=== PATIENT | male | born 1955 | race Caucasian/White ===

== ENCOUNTER 2021-12-14 01:11 | Emergency (ER) | payer MEDICARE ==
[~2021-12-14] VITALS: Ht 190.5 cm; Wt 101.0 kg
[~2021-12-14 01:11] MED LIST: NO HOME MEDS
[2021-12-14 01:23] VITALS: BP 143/80
[2021-12-14 01:30] VITALS: BP 137/67
[2021-12-14 02:06] LABS: HEMATOCRIT 42.6 % (39.0-50.0); IMMATURE GRANULOCYTES 1.2 % (0.0-5.0); MEAN CELL VOLUME 93.8 fL CALC (80.0-100.0); MEAN CORPUSCULAR HGB 30.8 pG CALC (26.0-32.0); MEAN CORPUSCULAR HGB CONC 32.9 g/dL CAL (32.0-36.0); NEUT# 4.38 thou/uL (1.82-7.42); RED BLOOD COUNT 4.54 mill/uL (4.70-6.10); RED CELL DISTRI WIDTH 13.5 % (11.5-15.5)
[2021-12-14 02:10] LABS: ALBUMIN 3.9 g/dL (3.2-5.0); BUN 20 mg/dL (8-23); BUN/CREATININE RATIO 24 (12-20 (CALC)); CHLORIDE 104 mmol/l (95-108); CREATININE 0.8 mg/dL (0.7-1.3); GFR FOR AFR.AMER. > 60 ML/MIN (>=60 (CALC)); GFR OTHER RACES > 60 ML/MIN (>=60 (CALC)); POTASSIUM 4.4 mmol/l (3.5-5.1); SGOT/AST 19 u/l (19-48); TOTAL PROTEIN 6.8 g/dL (6.3-8.2)
[2021-12-14 02:12] LABS: ALKALINE PHOSPHATASE 157 u/l (38-126); ANION GAP 15 (6-22 (CALC)); BILIRUBIN, TOTAL 0.6 mg/dL (0.0-1.4); CARBON DIOXIDE 19 mmol/l (22-30); SODIUM 134 mmol/l (137-146)
[2021-12-14 02:15] VITALS: BP 141/76
[2021-12-14 02:30] VITALS: BP 130/68
[2021-12-14 02:45] VITALS: BP 124/66
[2021-12-14] MEDS ORDERED: ULTRAM50 M1 PO (02:55)
[2021-12-14] MEDS ORDERED: CYCLOBENZAPRINE10 MG PO ×2 (02:55→10:20)
[2021-12-14 03:00] VITALS: BP 139/68
[2021-12-14] MEDS ORDERED: MEDDOSEPAK PO ×2 (03:40→10:20)
== END 2021-12-14 03:10 | disposition home or self-care (01) ==
LOC: ED 01:11
PROVIDERS: Emergency Medicine
DX: M47.26 Other spondylosis with radiculopathy, lumbar region (principal); F17.200 Nicotine dependence, unspecified, uncomplicated; Z86.16 Personal history of COVID-19

== ENCOUNTER 2024-06-15 04:29 | Emergency (ER) | payer MEDICARE ==
[~2024-06-15] VITALS: Ht 190.5 cm; Wt 104.0 kg
[2024-06-15] VITALS (12 sets, daily range): BP systolic 128–170; BP diastolic 59–89
[~2024-06-15 04:29] MED LIST changes: +CYCLOBENZAPRINE10 MG PO; +MEDDOSEPAK PO; +ULTRAM50 M1 PO
[2024-06-15] MEDS ORDERED: Pantoprazole Sodium 40 MG VIAL (Protonix) IV STA (04:59)
[2024-06-15] MEDS ORDERED: SODIUM CHLORIDE 0.9% 1,000 ML IV STA (04:59)
[2024-06-15] MEDS ORDERED: ALUM & MAG HYDROX-SIMETHICONE 30 ML PO ONE (05:00)
[2024-06-15] MEDS ORDERED: KETOROLAC TROMETHAMINE 30 MG/ML SDV IV ONE (05:00)
[2024-06-15] MEDS ORDERED: DIATRIZOATE MEGLUMINE & SODIUM 30 ML/BTL PO ONE (05:00)
[2024-06-15] MEDS ORDERED: LIDOCAINE VISCOUS 2% 15 ML UDC PO ONE (05:00)
[2024-06-15] MEDS ORDERED: PRILOSEC OTC20 MG PO (05:11)
[2024-06-15] MEDS ORDERED: GABAPENTIN100 MG PO (05:11)
[2024-06-15] MEDS ORDERED: BP MED (05:12)
[2024-06-15] MEDS ORDERED: TAMSULOSIN0.4 MG PO (05:12)
[2024-06-15] MEDS ORDERED: MUSCLE SPASM MED (05:13)
[2024-06-15] MEDS ORDERED: AMBIEN10 MG PO (05:14)
[2024-06-15 05:35] LABS: BASO% 0.2 % (0-3); EOS% 1.1 % (0-8); HEMATOCRIT 45.2 % (39.0-50.0); HEMOGLOBIN 14.6 g/dl (14.0-18.0); IMMATURE GRANULOCYTES 0.4 % (0.0-5.0); LYMPH% 8.4 % (15-41); MEAN CELL VOLUME 91.5 fL CALC (80.0-100.0); MEAN CORPUSCULAR HGB 29.6 pG CALC (26.0-32.0); MEAN CORPUSCULAR HGB CONC 32.3 g/dL CAL (32.0-36.0); MONO% 3.4 % (2-13); NEUT# 10.84 thou/uL (1.82-7.42); NEUT% 86.5 % (42-76); RED BLOOD COUNT 4.94 mill/uL (4.70-6.10); RED CELL DISTRI WIDTH 13.7 % (11.5-15.5)
[2024-06-15 05:50] LABS: ALBUMIN 4.2 g/dL (3.2-5.0); BILIRUBIN, TOTAL 0.5 mg/dL (0.2-1.3); CREATININE 0.8 mg/dL (0.7-1.3); POTASSIUM 4.2 mmol/l (3.5-5.1); TOTAL PROTEIN 7.3 g/dL (6.3-8.2)
[2024-06-15 06:56] LABS: URINE BILIRUBIN - DIPSTICK Negative (NEGATIVE); URINE BLOOD DIPSTICK Small (NEGATIVE); URINE COLOR Yellow; URINE GLUCOSE - DIPSTICK 500 mg/dL (NEGATIVE); URINE KETONE Negative (NEGATIVE); URINE LEUK ESTERASE Negative (NEGATIVE); URINE NITRITE - DIPSTICK Negative (Negative); URINE PROTEIN - DIPSTICK Trace mg/dL (NEG-TRACE); URINE SPECIFIC GRAVITY 1.015; URINE UROBILINOGEN - DIPSTICK 0.2 E.U./dL (0.2)
[2024-06-15] MEDS ORDERED: MORPHINE SULFATE 4 MG/ML VIAL IV ONE (07:45)
[2024-06-15] MEDS ORDERED: ONDANSETRON HCl 4 MG/2 ML SDV IV ONE (07:45)
[2024-06-15] MEDS ORDERED: HYDROmorphone HCL 2 MG/AMP IV ONE (08:35)
[2024-06-15] MEDS ORDERED: TRAMADOL HYDROC50 M1 PO (08:49)
[2024-06-15] MEDS ORDERED: ZOFRAN4 MG/TAB PO (08:49)
[2024-06-15] MEDS ORDERED: DULCOLAX10 MG RE (08:53)
== END 2024-06-15 09:20 | disposition home or self-care (01) ==
LOC: ED 04:29
PROVIDERS: Family Medicine
DX: R10.31 Right lower quadrant pain (principal); R10.32 Left lower quadrant pain; K59.00 Constipation, unspecified; K42.9 Umbilical hernia without obstruction or gangrene; I10 Essential (primary) hypertension; E11.9 Type 2 diabetes mellitus without complications; Z86.16 Personal history of COVID-19; Z86.0100 Personal history of colon polyps, unspecified
CPT/HCPCS: J1171; J2405; J2470; Q9967